=== PATIENT | female | born 1990 | race Native Hawaiian/Other Pacific Islander ===

== ENCOUNTER 2017-10-02 07:37 | Inpatient (IN) | payer MEDICAID ==
[2017-10-02] MEDS ORDERED: VISTARIL PO ONE (11:00)
[2017-10-02] MEDS ORDERED: MINERAL OIL PO PRN (12:44)
[2017-10-02] MEDS ORDERED: BRETHINE SUB-Q PRN (12:44)
[2017-10-02] MEDS ORDERED: XYLOCAINE 2% INFILTRATI ONE (12:44)
[2017-10-02] MEDS ORDERED: STADOL IV PRN (12:44)
[2017-10-02] MEDS ORDERED: BRETHINE IVP PRN (12:44)
[2017-10-02] MEDS ORDERED: PITOCin/NS 30 UNIT/500ML 30 UNITS/500 ML BAG IV SCH ×2 (13:00→14:00)
--- NOTE | 2017-10-02 13:09 | Ultrasound Report ---
FINAL REPORT EXAM: US OB LIMITED HISTORY: well being, GDM TECHNIQUE: Transabdominal OB ultrasound. PRIORS: None currently available. FINDINGS: Single intrauterine . Presentation: Cephalic. heart rate: 143-152 BPM. Amniotic fluid index: 12.7 cm. Within normal limits. IMPRESSION: Single live intrauterine .
--- NOTE | 2017-10-02 13:11 | Ultrasound Report ---
FINAL REPORT EXAM: US OB BPP WO NON-STRESS HISTORY: weel being, GDM TECHNIQUE: Biophysical profile PRIORS: None currently available. FINDINGS: Single fetus is identified. Presentation: Cephalic heart rate: 143-152 BPM ARTEMIO: 12.7 cm. Within normal limits. Breathin-several episodes of no breathing for up a 30 seconds. Gross Body Movements: 2 Tone: 2 Qualitative AFV: 2 IMPRESSION: Biophysical profile score 6/8. Terence level II finding report initiated.
--- NOTE | 2017-10-02 13:29 | History and Physical Report ---
History of Present Illness Date of admission: 10/02/17 12:49 Chief complaint: c/o contractions History of present illness: Pt presents in latent labor. Pt has GDM and was on metformin but states she has not taken in more than a week due to running out of meds. Pt was not to see mfm until Monday and had varible on NST so BPp was done which was 8. Decision made to keep pt for augmentation of latent labor. Plan of care was d/w pt and all questions were addressed and answered. EDC Confirmation: 10/09/2017 Gestational Age: 21 2/7 weeks Past History : 1 Past Medical History: Negative Past Medical History Past Surgical History: negative Past Medical History Anesthesia Complications: negative Anemia: negative Autoimmune Disorder: negative Bleeding Disorder: negative Blood Transfusions: negative Breast Disease: negative Diabetes: negative Heart Disease: negative Hypertension: negative Hepatitis/Liver Disease: negative Kidney Disease/UTI: negative Neurologic/Epilepsy/Migraines: negative Phlebitis/Varicosities: negative Psychiatric: negative Pulmonary Disease/Asthma: negative Thyroid Disease: negative Hospitalizations: negative 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 of genital herpes: no Partner hx. of genital herpes: no Varicella/Chicken Pox Status: Previous Disease TB Risk: no Genetic History Congenital Heart Defect: Mom: no Dad: no Mendez Disease: Mom: no Dad: no Thalassemia Mom: no Dad: no Neural Tube Defect Mom: no Dad: no Down's Syndrome Mom: no Dad: no Mika-Sachs Mom: no Dad: no Sickle Cell Disease/Trait Mom: no Dad: no Hemophilia Mom: no Dad: no Muscular Dystrophy Mom: no Dad: no Cystic Fibrosis Mom: no Dad: no Chandu Chorea Mom: no Dad: no Mental Retardation Mom: no Dad: no Fragile X Mom: no Dad: no Other Genetic/Chromosomal Disorder Mom: no Dad: no Child w/other defect Mom: no Dad: no Enviromental Exposures Xray Exposure: no Medication, drug, or alcohol use since LMP: no Chemical/Other Exposure: no Exposure to Cat Liter: no Hx of Parvovirus (Fifth Disease): no Active Medications (reviewed today): None Current Allergies (reviewed today): No known allergies Past History Past Medical History: no pertinent history Past Surgical History: no surgical history Social history: no significant social history - Obstetrical History Expected Date of Delivery: 10/09/17 Actual Gestation: 39 Week(s) 0 Day(s) : 1 Medications and Allergies Allergies Allergy/AdvReac Type Severity Reaction Status Date / Time No Known Allergies Allergy Verified 10/02/17 10:34 Home Medications Medication Instructions Recorded Confirmed Last Taken Type RX: No Known Home Medications [No 10/02/17 10/02/17 Unknown History Reported Home Medications] Active Meds: Active Medications Ephedrine Sulfate (Ephedrine Sulfate) 10 mg IV Q2M PRN PRN Reason: Hypotension Fentanyl (Sublimaze) 100 mcg IV Q2H PRN PRN Reason: Labor Pain Lactated Ringer's (Lactated Ringers) 1,000 mls @ 125 mls/hr IV DIRECT ASPEN Oxytocin/Sodium Chloride (Pitocin/Ns 20 Unit/1000ml Drip) 20 units in 1,000 mls @ 125 mls/hr IV DIRECT ASPEN Oxytocin/Sodium Chloride (Pitocin/Ns 30 Unit/500ml) 30 units in 500 mls @ 2 mls /hr IV TITR ASPEN PRN Reason: Protocol Oxytocin/Sodium Chloride (Pitocin/Ns 30 Unit/500ml) 30 units in 500 mls @ 1 mls /hr IV TITR ASPEN; 1 MILLIUNITS/MIN PRN Reason: Protocol Lidocaine (Xylocaine 2%) 20 ml INFILTRATI ONCE ONE Stop: 10/02/17 12:45 Mineral Oil (Mineral Oil) 30 ml PO QHS PRN PRN Reason: Constipation Terbutaline Sulfate (Brethine) 0.25 mg SUB-Q ONCE PRN PRN Reason: Hyperstimulation/Hypertonicity Terbutaline Sulfate (Brethine) 0.25 mg IVP ONCE PRN PRN Reason: Hyperstimulation/Hypertonicity Review of Systems All systems: negative - Vital Signs Vital signs: Vital Signs Temp Pulse Resp BP 98.0 F 68 20 125/75 10/02/17 07:51 10/02/17 07:51 10/02/17 07:51 10/02/17 07:51 Temp Pulse Resp BP Pulse Ox 97.6 F 65 20 120/70 10/02/17 12:46 10/02/17 12:46 10/02/17 12:46 10/02/17 12:46 - Physical Exam Cardiovascular: Normal S1, Normal S2 Lungs: Positive: Clear to auscultation, Normal air movement Abdomen: Positive: normal appearance, soft. Negative: distention, tenderness, guarding Genitourinary (Female): Positive: normal external genitalia, normal perenium Vagina: Positive: normal moisture - Obstetrical FHR: category 1 Uterine Contraction Monitor Mode: Palpation Cervical Dilatation: 5 Cervical Effacement Percentage: 100 station: -1 Uterine Contraction Pattern: Regular Uterine Tone Measurement Phase: Resting Uterine Contraction Intensity: Moderate Results All other labs normal. Assessment and Plan - Patient Problems (1) 39 weeks gestation of Current Visit: Yes Status: Acute (2) Gestational diabetes mellitus (GDM) controlled on oral hypoglycemic drug Current Visit: Yes Status: Acute Plan to address problem: -labor -admit -accucheck -anticipate vaginal delivery
[2017-10-02] MEDS ORDERED: ePHEDrine SULFATE IV PRN ×2 (13:30→14:23)
[2017-10-02] MEDS ORDERED: SUBLIMAZE IV PRN (13:30)
[2017-10-02] MEDS: LACTATED RINGERS 1,000 ML IV SCH ×3 (13:47→16:39)
--- NOTE | 2017-10-02 14:22 | Anesthesia Consultation ---
Anesthesia Consult and Med Hx Date of service: 10/02/17 - Airway Anesthetic Teeth Evaluation: Good ROM Head & Neck: Adequate Mental/Hyoid Distance: Adequate Mallampati Class: Class II Intubation Access Assessment: Probably Good - Pre-Operative Health Status ASA Pre-Surgery Classification: ASA2 Proposed Anesthetic Plan: Epidural, Spinal - Pulmonary Hx Asthma: Yes COPD: No Hx Pneumonia: No - Cardiovascular System Hx Hypertension: No - Central Nervous System Hx Seizures: No Hx Psychiatric Problems: No - Endocrine Hx Renal Disease: No Hx End Stage Renal Disease: No Hx Hypothyroidism: No Hx Hyperthyroidism: No - Hematic Hx Anemia: No Hx Sickle Cell Disease: No
[2017-10-02] MEDS ORDERED: NARCAN 2 MG/2 ML IV PRN (14:23)
[2017-10-02 14:31] LABS: Hematocrit 41.8 % (30.3-42.9); Hemoglobin 12.9 gm/dl (10.1-14.3); Mean Corpuscular HGB Conc 31 % (30-34); Mean Corpuscular Hemoglobin 22 pg (28-32); Mean Corpuscular Volume 70 fl (79-97); Red Blood Count 5.98 M/mm3 (3.65-5.03); White Blood Count 17.8 K/mm3 (4.5-11.0)
[2017-10-02 14:32] LABS: Platelet Count 228 K/mm3 (140-440)
[2017-10-02] MEDS ORDERED: fentaNYL-BUPIV 2 MCG/ML-0.125% 200 MCG/100 ML BAG EPIDURAL SCH (15:00)
--- NOTE | 2017-10-02 16:28 | Progress Note ---
Assessment and Plan - Patient Problems (1) 39 weeks gestation of Current Visit: Yes Status: Acute (2) Gestational diabetes mellitus (GDM) controlled on oral hypoglycemic drug Current Visit: Yes Status: Acute Plan to address problem: -labor -anticipate vaginal delivery Subjective - Subjective Date of service: 10/02/17 Principal diagnosis: IUP 39 weeks in active labor 2)GDM Interval history: pt is comfortable with epidural in place. AROM done with 1+mec noted and iupc placed w/o difficulty. Patient reports: movement normal, contractions, no new complaints Objective - Vital Signs Vital Signs: Vital Signs - 12hr 10/02/17 10/02/17 10/02/17 07:51 07:53 12:20 Temperature 98.0 F Pulse Rate 68 68 73 Respiratory 20 Rate Blood Pressure 125/75 137/80 Blood Pressure 125/75 [Left] O2 Sat by Pulse Oximetry 10/02/17 10/02/17 10/02/17 12:46 14:05 14:10 Temperature 97.6 F Pulse Rate 65 73 70 Respiratory 20 Rate Blood Pressure Blood Pressure 120/70 [Left] O2 Sat by Pulse 98 100 Oximetry 10/02/17 10/02/17 10/02/17 14:12 14:15 14:20 Temperature Pulse Rate 72 76 70 Respiratory Rate Blood Pressure Blood Pressure [Left] O2 Sat by Pulse 91 99 99 Oximetry 10/02/17 10/02/17 10/02/17 14:22 14:25 14:29 Temperature Pulse Rate 65 82 73 Respiratory Rate Blood Pressure 128/78 108/67 Blood Pressure [Left] O2 Sat by Pulse 100 Oximetry 10/02/17 10/02/17 10/02/17 14:30 14:35 14:40 Temperature Pulse Rate 71 84 70 Respiratory Rate Blood Pressure Blood Pressure [Left] O2 Sat by Pulse 100 99 99 Oximetry 10/02/17 10/02/17 10/02/17 14:42 14:45 14:47 Temperature Pulse Rate 74 69 68 Respiratory Rate Blood Pressure 123/80 114/70 114/70 Blood Pressure [Left] O2 Sat by Pulse 98 Oximetry 10/02/17 10/02/17 10/02/17 14:49 14:50 14:51 Temperature Pulse Rate 72 71 68 Respiratory Rate Blood Pressure 119/73 114/70 Blood Pressure [Left] O2 Sat by Pulse 99 Oximetry 12/10/02/17 10/02/17 14:53 14:55 14:57 Temperature Pulse Rate 71 72 71 Respiratory Rate Blood Pressure 124/73 117/72 120/72 Blood Pressure [Left] O2 Sat by Pulse 97 Oximetry 10/02/17 10/02/17 10/02/17 14:59 15:00 15:01 Temperature Pulse Rate 68 68 68 Respiratory Rate Blood Pressure 112/67 121/72 Blood Pressure [Left] O2 Sat by Pulse 99 Oximetry 10/02/17 10/02/17 10/02/17 15:03 15:05 15:09 Temperature Pulse Rate 68 71 62 Respiratory Rate Blood Pressure 113/71 127/76 Blood Pressure [Left] O2 Sat by Pulse 99 Oximetry 10/02/17 10/02/17 10/02/17 15:10 15:14 15:15 Temperature Pulse Rate 69 71 72 Respiratory Rate Blood Pressure 109/59 113/69 Blood Pressure [Left] O2 Sat by Pulse 98 99 Oximetry 10/02/17 10/02/17 10/02/17 15:18 15:20 15:23 Temperature Pulse Rate 71 72 68 Respiratory Rate Blood Pressure 115/68 113/66 Blood Pressure [Left] O2 Sat by Pulse 99 Oximetry 10/02/17 10/02/17 10/02/17 15:25 15:29 15:30 Temperature Pulse Rate 73 67 67 Respiratory Rate Blood Pressure 128/67 Blood Pressure [Left] O2 Sat by Pulse 98 98 Oximetry 10/02/17 10/02/17 10/02/17 15:34 15:35 15:40 Temperature Pulse Rate 70 66 68 Respiratory Rate Blood Pressure 124/72 Blood Pressure [Left] O2 Sat by Pulse 98 99 Oximetry 10/02/17 10/02/17 10/02/17 15:41 15:44 15:45 Temperature Pulse Rate 68 68 69 Respiratory Rate Blood Pressure 128/77 123/79 Blood Pressure [Left] O2 Sat by Pulse 97 Oximetry 10/02/17 10/02/17 10/02/17 15:49 15:50 15:55 Temperature Pulse Rate 86 78 81 Respiratory Rate Blood Pressure 100/59 Blood Pressure [Left] O2 Sat by Pulse 99 100 Oximetry 10/02/17 10/02/17 10/02/17 16:00 16:05 16:07 Temperature Pulse Rate 67 67 71 Respiratory Rate Blood Pressure 128/74 Blood Pressure [Left] O2 Sat by Pulse 100 99 Oximetry 10/02/17 10/02/17 10/02/17 16:10 16:15 16:20 Temperature Pulse Rate 67 74 71 Respiratory Rate Blood Pressure Blood Pressure [Left] O2 Sat by Pulse 99 98 100 Oximetry 10/02/17 10/02/17 10/02/17 16:21 16:25 16:27 Temperature Pulse Rate 67 81 82 Respiratory Rate Blood Pressure 113/67 Blood Pressure [Left] O2 Sat by Pulse 100 91 Oximetry - Exam FHR: category 1 Cervical Dilatation: 7.5 Cervical Effacement Percentage: 100 station: 0 Uterine Contraction Pattern: Regular - Labs Labs: Abnormal Labs 10/02/17 13:15 WBC 17.8 H RBC 5.98 H MCV 70 L MCH 22 L Laboratory Results - last 24 hr 10/02/17 10/02/17 10/02/17 13:15 13:15 14:19 WBC 17.8 H RBC 5.98 H Hgb 12.9 Hct 41.8 MCV 70 L MCH 22 L MCHC 31 RDW 15.0 Plt Count 228 POC Glucose 81 Blood Type O POSITIVE Antibody Screen Negative
[2017-10-02] MEDS ORDERED: METHERGINE IM ONE ×2 (19:42→20:15)
[2017-10-02] MEDS: PITOCin/NS 20 UNIT/1000ML DRIP 20 UNITS/1,000 ML BAG IV SCH ×3 (20:14→22:41)
--- NOTE | 2017-10-02 20:14 | Procedure Note ---
OB Delivery Note - Delivery Date of Delivery: 10/02/17 Surgeon: JOHNNIE GALICIA Estimated blood loss: other (350ml) - Vaginal Delivery presentation: vertex Delivery position: OA Intrapartum events: meconium Delivery induction: none Delivery augmentation: rupture of membranes Delivery monitor: external FHT, external uterine, internal uterine Route of delivery: Delivery placenta: spontaneous, other (intact) Delivery cord: 3 umbilical vessels Episiotomy: midline Delivery laceration: 3rd degree (partial 3rd degree extension repaird in usual fashion) Delivery repair: vicryl (3-0) Anesthesia: epidural Delivery comments: Delivery as above. Ant shoulder and rest of infant delivered w/o difficulty over a MLE. [facility] taken to [facility] to waiting NICU and respiratory teams. Cord blood was collected. MLE with 3rd degree extension with intact anal spincter was repaired in usual fashion with 3-0 vicryl. Mother and stable in LDR. - Infant A at 1 minute: 8 at 5 minutes: 9 Infant Gender: Female (6LBS 11OZ)
[2017-10-02] MEDS ORDERED: BENADRYL PO PRN (20:17)
[2017-10-02] MEDS ORDERED: TYLENOL PO PRN (20:17)
[2017-10-02] MEDS ORDERED: LANSINOH TP PRN (20:17)
[2017-10-02] MEDS ORDERED: TUCKS PAD TP PRN (20:17)
[2017-10-02] MEDS ORDERED: ZOFRAN IV PRN (20:17)
[2017-10-02] MEDS ORDERED: PHENERGAN PO PRN (20:17)
[2017-10-02] MEDS ORDERED: NORCO 5/325 PO PRN (20:17)
[2017-10-02] MEDS ORDERED: MILK OF MAGNESIA PO PRN (20:17)
[2017-10-02] MEDS ORDERED: DULCOLAX PR PRN (20:17)
[2017-10-02] MEDS: MOTRIN PO SCH (21:00)
[2017-10-02] MEDS ORDERED: SODIUM CHLORIDE FLUSH SYRINGE 10 ML IV NR (21:00)
[2017-10-03] MEDS: MOTRIN PO SCH ×3 (03:42→18:20)
[2017-10-03] MEDS ORDERED: BOOSTRIX IM ONE (06:23)
[2017-10-03] MEDS ORDERED: DERMOPLAST TP PRN (07:20)
--- NOTE | 2017-10-03 07:56 | Progress Note ---
Assessment and Plan Patient doing well, ambulating around room and caring for . with help from . VSSAF, locrenukaa small. H&H ordered for this morning but no s/s anemia at this time. Continue pathway and anticipate d/c home tomorrow. - Patient Problems (1) (spontaneous vaginal delivery) Current Visit: Yes Status: Acute Subjective - Subjective Date of service: 10/03/17 Principal diagnosis: day #1 s/p , 3rd degree, GDM Patient reports: appetite normal, voiding normally, pain well controlled, ambulating normally, no dizzy ambulation, no nauseated [place]: doing well, nursing well Objective - Vital Signs Latest vital signs: Vital Signs Temp Pulse Resp BP BP Pulse Ox 10/03/17 05:33 98.0 F 82 18 92/54 97 10/02/17 23:03 98.2 F 24 121/74 10/02/17 21:35 98.9 F 87 16 108/63 99 10/02/17 21:04 93 H 107/62 10/02/17 20:49 88 18 107/57 107/57 10/02/17 20:35 118 H 18 106/57 10/02/17 20:34 118 H 106/57 10/02/17 20:25 96 H 18 107/60 107/60 10/02/17 20:10 109 H 18 108/53 10/02/17 20:06 109 H 108/53 10/02/17 20:03 108 H 100 10/02/17 19:58 125 H 100 10/02/17 19:56 76 90 10/02/17 19:53 109 H 100 10/02/17 19:48 96 H 100 10/02/17 19:43 102 H 99 10/02/17 19:38 147 H 100 10/02/17 19:34 157 H 168/110 10/02/17 19:33 161 H 100 10/02/17 19:28 159 H 99 10/02/17 19:23 104 H 99 10/02/17 19:13 125 H 79 L 10/02/17 19:10 84 100 10/02/17 19:05 81 100 10/02/17 19:04 76 115/71 10/02/17 19:00 76 100 10/02/17 18:55 73 100 12/18/17 18:50 74 100 12/18/17 18:45 79 100 12/18/17 18:40 76 100 12/18/17 18:35 81 100 12/18/17 18:33 71 118/70 12/18/17 18:30 72 100 12/18/17 18:25 81 100 12/18/17 18:20 98.9 F 73 100 12/18/17 18:15 73 100 12/18/17 18:10 73 100 12/18/17 18:05 77 100 12/18/17 18:04 72 128/76 12/18/17 18:00 71 100 12/18/17 17:55 70 100 12/18/17 17:50 78 100 12/18/17 17:45 69 100 12/18/17 17:40 70 100 12/18/17 17:35 67 100 12/18/17 17:34 65 122/68 12/18/17 17:30 65 100 12/18/17 17:25 68 99 12/18/17 17:20 68 100 12/18/17 17:19 66 0 L 12/18/17 17:15 68 100 12/18/17 17:10 64 99 12/18/17 17:05 64 100 12/18/17 17:03 61 117/57 12/18/17 17:00 70 100 12/18/17 16:55 68 100 12/18/17 16:50 69 100 12/18/17 16:45 70 100 12/18/17 16:40 68 100 12/18/17 16:35 73 100 12/18/17 16:30 65 99 12/18/17 16:27 82 91 12/18/17 16:25 81 100 12/18/17 16:21 67 113/67 12/18/17 16:20 71 100 12/18/17 16:15 98.5 F 74 98 12/18/17 16:10 67 99 12/18/17 16:07 71 128/74 12/18/17 16:05 67 99 12/18/17 16:00 67 100 12/18/17 15:55 81 100 12/18/17 15:50 78 99 12/18/17 15:49 86 100/59 12/18/17 15:45 69 97 12/18/17 15:44 68 123/79 12/18/17 15:41 68 128/77 1218/17 15:40 68 99 18/17 15:35 66 98 18/17 15:34 70 124/72 18/17 15:30 67 98 18/17 15:29 67 128/67 18/17 15:25 73 98 18/17 15:23 68 113/66 18/17 15:20 72 99 18/17 15:18 71 115/68 18/17 15:15 72 113/69 99 18/17 15:14 71 109/59 18/17 15:10 69 98 18/17 15:09 62 127/76 18/17 15:05 71 99 18/17 15:03 68 113/71 18/17 15:01 68 121/72 18/17 15:00 68 99 18/17 14:59 68 112/67 10/02/17 14:57 71 120/72 17 14:55 72 117/72 97 18/17 14:53 71 124/73 18/17 14:51 68 114/70 18/17 14:50 71 99 18/17 14:49 72 119/73 18/17 14:47 68 114/70 18/17 14:45 69 114/70 98 18/17 14:42 74 123/80 18/17 14:40 70 99 18/17 14:35 84 99 18/17 14:30 71 100 18/17 14:29 73 108/67 18/17 14:25 82 100 18/17 14:22 65 128/78 18/17 14:20 70 99 18/17 14:15 76 99 18/17 14:12 72 91 18/17 14:10 70 100 18/17 14:05 73 98 18/17 12:46 97.6 F 65 20 120/70 18/17 12:20 73 137/80 Intake and Output 18/17 12/18/17 1217 15:59 23:59 07:59 Intake Total 27.083 637.50 360 Output Total 200 750 900 Balance -172.917 -112.50 -540 Intake: IV 27.083 637.50 Lactated Ringers 1,000 ml 27.083 331.25 @ 125 mls/hr IV DIRECT ASPEN Rx#:[id number] PITOCin/NS 20 UNIT/1000ML 306.25 DRIP 20 units In 1,000 ml @ 125 mls/hr IV DIRECT ASPEN Rx#:[id number] Intake, Free Water 360 Output: Urine 200 750 900 Indwelling 200 Indwelling Catheter 750 Void 900 Other: Total, Output Amount 150 900 Weight 79.74 kg Estimated Blood Loss 350 - Exam Breasts: Present: normal, Cardiovascular: Present: Regular rate Lungs: Present: Clear to auscultation, Normal air movement Abdomen: Present: normal appearance, soft Vulva: both: laceration/episiotomy Uterus: Present: normal, firm, fundal height at umbilicus Extremities: Present: normal Deep Tendon Reflex Grade: Normal +2 Incision: Present: normal, dry, intact - Labs Labs: Abnormal lab results 10/02/17 Range/Units 13:15 WBC 17.8 H (4.5-11.0) K/mm3 RBC 5.98 H (3.65-5.03) M/mm3 MCV 70 L (79-97) fl MCH 22 L (28-32) pg
[2017-10-03 08:41] LABS: Hemoglobin 9.9 gm/dl (10.1-14.3)
[2017-10-03 08:42] LABS: Hematocrit 31.9 % (30.3-42.9)
[2017-10-03] MEDS ORDERED: Fluarix Quad 2017-2018(36 MOS+ IM ONE (12:00)
[2017-10-04] MEDS: MOTRIN PO SCH ×2 (00:03→12:27)
--- NOTE | 2017-10-04 06:47 | Discharge Summary ---
Providers - Providers Date of Admission: 10/02/17 12:49 Date of discharge: 10/04/17 (pt desires d/c ) Attending physician: JOHNNIE GALICIA Primary care physician: JOHNNIE GALICIA Hospitalization Reason for admission: active labor Delivery: Episiotomy: none Laceration: none Incision: normal Other procedures: none complications: none Discharge diagnosis: IUP at term delivered [place] baby: female Hospital course: uncomplicated vaginal delivery Pt w/o complaint VSS FF below umb Lochia small perineum intact Stable H&H No s/ sx of anemia Doing well s/p vag delivery P: d/c today with instructions Pt request DEPO for BC will give prior to d/c RTO 4-6 weeks PP care Condition at discharge: Good Disposition: DC-01 TO HOME OR SELFCARE - Discharge Diagnoses (1) (spontaneous vaginal delivery) Status: Acute Comment: RTO 4-6 weeks PP care Plan - Provider Discharge Summary Activity: routine, no sex for 6 weeks, no heavy lifting 4 weeks, no strenuous exercise Diet: routine Instructions: routine Additional instructions: [] Smoking cessation referral if applicable(refer to patient education folder for contact #) [] Refer to [facility] Booklet Call your doctor immediately for: * Fever > 100.5 * Heavy vaginal bleeding ( >1 pad per hour) * Severe persistent headache * Shortness of breath * Reddened, hot, painful area to leg or breast * Drainage or odor from incision. * Keep incision clean and dry at all times and follow doctor's instructions regarding bathing/showering - Follow up plan Follow up: JOHNNIE GALICIA MD [Primary Care Provider] - 6 Weeks (Congratulations! Please call [phone] to schedule your visit in 4-6 weeks. Take medications as prescribed. Please remember you will need to schedule a 2hr GTT at 6 weeks to follow up from your Gestational Diabetes.(this can be scheduled the same day as your poatpartum visit. You will need to fast after midnight.) Call with any concerns)
[2017-10-04] MEDS ORDERED: DEPO-PROVERA (CONTRACEPTION) IM ONE (07:00)
[2017-10-04] MEDS ORDERED: DEPO-PROVERA (CONTRACEPTION) IM NR (10:30)
[2017-10-04] MEDS ORDERED: Fluarix Quad 2017-2018(36 MOS+ IM ONE (12:00)
[2017-10-04 13:35] VITALS: BP 115/64
== END 2017-10-04 14:14 | disposition home or self-care (01) | DRG 988 ==
LOC: TRG 07:37 → LD 12:49 → OB 21:44
PROVIDERS: ADMIT Obstetrics & Gynecology; ATTEND Obstetrics & Gynecology
PROC: 10E0XZZ Delivery of Products of Conception, External Approach (ICD-10-PCS; principal; 2017-10-02)
PROC: 0W8NXZZ Division of Female Perineum, External Approach (ICD-10-PCS; 2017-10-02)
PROC: 0DQR0ZZ Repair Anal Sphincter, Open Approach (ICD-10-PCS; 2017-10-02)
PROC: 10907ZC Drainage of Amniotic Fluid, Therapeutic from Products of Conception, Via Natural or Artificial Opening (ICD-10-PCS; 2017-10-02)
PROC: 3E0R3BZ Introduction of Anesthetic Agent into Spinal Canal, Percutaneous Approach (ICD-10-PCS; 2017-10-02)
PROC: 00HU33Z Insertion of Infusion Device into Spinal Canal, Percutaneous Approach (ICD-10-PCS; 2017-10-02)
PROC: 3E0234Z Introduction of Serum, Toxoid and Vaccine into Muscle, Percutaneous Approach (ICD-10-PCS; 2017-10-03)
DX: O24.425 Gestational diabetes mellitus in childbirth, controlled by oral hypoglycemic drugs (principal); O70.20 Third degree perineal laceration during delivery, unspecified; O99.52 Diseases of the respiratory system complicating childbirth; Z37.0 Single live birth; Z3A.39 39 weeks gestation of pregnancy; O77.0 Labor and delivery complicated by meconium in amniotic fluid; J45.909 Unspecified asthma, uncomplicated; Z23 Encounter for immunization
CPT/HCPCS: 36415; 76815; 76819; 82962; 85014; 85018; 85027; 86592; 86850; 86900; 86901; 88307; 90471; 90686; 90715; 99211; G0008; G0463; J1050; J2210; J2590; J3010; J7120; Q0177